=== PATIENT | female | born 1955 | race Caucasian/White ===

== ENCOUNTER 2018-07-04 10:54 | Inpatient (IN) ==
--- NOTE | 2018-07-04 11:13 | Emergency Department Note ---
Disposition Clinical Impression: Suicidal ideation Depression Qualifiers: Depression Type: unspecified Qualified Code(s): F32.9 - Major depressive disorder, single episode, unspecified Disposition: Admitted As Inpatient Condition: Good Time of Disposition: 14:56 General Adult HPI - General Chief complaint: ED Psychiatric Symptoms Stated complaint: SI Time Seen by Provider: 07/04/18 11:02 Source: patient, EMS Mode of arrival: EMS Limitations: no limitations Nursing Notes Reviewed: Yes Vital Signs Reviewed: Yes - History of Present Illness HPI Narrative: Patient is a 62-year-old female that presents emergency department for suicidal ideation. Patient states this is been ongoing for months but has gotten worse over the past 2 days. Patient states that she can no longer take anymore and is having increased thoughts of harming herself. Patient states that if she was to attempt suicide she would overdose on her pills at home. Patient also states that she does have a gun in the home which usually the examination and the gun are and she does not know where the ammunition is but however recently due to due to someone breaking in the gun has been loaded. Patient states that she has had previous suicide attempt when she was in high school. Patient states that she has not taken any additional medications or drugs at this time. Patient states that she is having thoughts of harming someone else but will not disclose who she is having thoughts of harming. Patient denies any auditory or visual hallucinations. Patient states that she has been taking all her medications as appropriate however states that she has not anything for depression at this time. Pain Scale: 0 - Related Data Home Medications Medication Instructions Recorded Confirmed Levothyroxine [Synthroid] 100 mcg PO DAILY 11/30/15 07/04/18 Simvastatin [Zocor] 40 mg PO HS 11/30/15 07/04/18 Gabapentin [Neurontin] 300 mg PO TID 05/20/18 07/04/18 clonazePAM [Clonazepam] 1 mg PO BID 07/04/18 07/04/18 Allergies Allergy/AdvReac Type Severity Reaction Status Date / Time Sulfa (Sulfonamide Allergy Rash Verified 11/30/15 17:55 Antibiotics) All systems ED: reviewed and negative except as stated. Cardiovascular: Denies: chest pain Respiratory: Denies: dyspnea Psychiatric: Reports: anxiety, depression, suicidal thoughts, homicidal thoughts. Denies: auditory hallucinations, visual hallucinations Past Medical History - Past Medical History Medical history: Reports: hyperlipidemia, hypertension, thyroid disease Psychiatric history: Reports: anxiety, bipolar, depression, prior suicide attempt, previous psychiatric hospitalization MEDICAL LEGAL INVESTIGATOR history: Reports: no MEDICAL LEGAL INVESTIGATOR history - Social History Smoking Status: Never smoker Smokeless Tobacco Status: No Alcohol use: Reports: none Drug use: Reports: none Physical Exam - General Limitations: no limitations General appearance: alert, in no apparent distress - Head Head exam: atraumatic, normocephalic - Eye Eye exam: Present: normal appearance, EOMI - Neck Neck exam: Present: normal inspection, full ROM, trachea midline - Respiratory Respiratory exam: Present: normal lung sounds bilaterally. Absent: respiratory distress, wheezes - Cardiovascular Cardiovascular exam: Present: regular rate, normal rhythm, normal heart sounds, +S1, +S2 - Abdominal Exam Abdominal exam: Present: soft, Non-Tender, normal bowel sounds - Neurological Exam Neurological exam: Present: alert, oriented X3 - Psychiatric Psychiatric exam: Present: depressed, flat affect - Skin Skin exam: Present: warm, dry, intact Course Vital Signs Temperature 98.8 F 07/04/18 11:01 Pulse Rate 82 07/04/18 11:01 Respiratory Rate 18 07/04/18 11:01 Blood Pressure 180/106 07/04/18 11:01 O2 Sat by Pulse Oximetry 99 07/04/18 11:01 Temperature 98.8 F 07/04/18 11:01 Pulse Rate 82 07/04/18 11:01 Respiratory Rate 18 07/04/18 11:01 Blood Pressure 180/106 07/04/18 11:01 O2 Sat by Pulse Oximetry 99 07/04/18 11:01 Oxygen Delivery Oxygen Delivery Room Air Medical Decision Making - [facility] Narrative Medical decision making narrative: Due the patient's into the emergency department with reports of depression and suicidal ideation we will obtain basic medical clearance labs and once patient has been deemed medically cleared 1A will be contacted to evaluate the patient at bedside. Patient has a pink slip that is filled out and is at the engineering secretary's test here in the emergency department. Patient's laboratory testing is relatively unremarkable and the patient has been deemed medically cleared. 1A evaluated the patient at bedside. 1A recommended admission for this patient. We will follow the recommendations the patient will be admitted to the hospital for psychiatric reasons. Patient has been pink slipped and is at the community mental health worker's desk. Dr. Werner was the accepting physician. Patient will be admitted to the psychiatric team for further evaluation of management - Medical Records Medical records reviewed: Yes I reviewed the patient's medical records. - Lab Data Lab results reviewed: Yes I reviewed the patient's lab results. Result diagrams: 07/04/18 11:21 07/04/18 12:19 Lab Results 07/04/18 07/04/18 07/04/18 Range/Units 11:21 11:21 11:21 WBC 6.8 (4.3-11.1) K/mcL RBC 4.72 (3.82-4.97) M/mcL Hgb 15.2 (11.5-15.4) g/dL Hct 46.1 H (35.3-44.9) % MCV 97.7 (83.0-100.0) fL MCH 32.2 (28.0-33.3) pg MCHC 33.0 (31.6-35.5) g/dL RDW 12.9 (11.5-14.5) % Plt Count 229 (140-400) K/mcL MPV 10.4 (9.4-12.4) fL Immature Gran % 0.4 (0-4) % Seg Neutrophils % 53.5 % Lymphocytes % 32.7 % Monocytes % 10.2 % Eosinophils % 1.9 % Basophils % 1.3 % Neutrophils # 3.6 (1.6-8.9) K/mcL Lymphocytes # 2.2 (0.6-4.6) K/mcL Monocytes # 0.7 (0.0-1.3) K/mcL Eosinophils # 0.1 (0.0-0.6) K/mcL Basophils # 0.1 (0.0-0.2) K/mcL Sodium Cancelled Potassium Cancelled Chloride Cancelled Carbon Dioxide Cancelled BUN Cancelled Creatinine Cancelled Est GFR ( Amer) Cancelled Est GFR (Non-Af Amer) Cancelled BUN/Creatinine Ratio Cancelled Glucose Cancelled Calculated Osmolality Cancelled Calcium Cancelled Urine Color (Yellow) Urine Clarity (Clear) Urine pH (5.0-8.0) pH Units Ur Specific [place] (1.010-1.025) Urine Protein (Neg-Trace) mg/dL Urine Glucose (UA) (Normal) mg/dL Urine Ketones (Negative) mg/dL Urine Blood (Negative) Urine Nitrite (Negative) Urine Bilirubin (Negative) Urine Urobilinogen (Normal) mg/dL Ur Leukocyte Esterase (Negative) Urine Microscopic RBC (0-3) per hpf Urine Microscopic WBC (0-3) per hpf Ur Squamous Epith Cells (None-Few) per lpf Urine Bacteria (None-Few) per hpf Hyaline Casts (None-Few) per lpf Salicylates < 2.5 L (15.0-30.0) mg/dL Urine Opiates Screen (Eyaylk=584) ng/mL Acetaminophen < 10 L (10-20) mcg/mL Ur Barbiturates Screen (Yyeism=322) ng/mL Ur Phencyclidine Scrn (Cutoff=25) ng/mL Ur Amphetamines Screen (Atucke=9511) ng/mL U Benzodiazepines Scrn (Kjiixk=718) ng/mL Urine Cocaine Screen (Cutoff= 300) ng/mL U Marijuana (THC) Screen (Cutoff = 50) ng/mL Ur Drug Screen Interp Ethyl Alcohol < 10 (Less than 10) mg/dL Specimen Rejected Hemolyzed 07/04/18 07/04/18 07/04/18 Range/Units 11:50 11:50 12:19 WBC (4.3-11.1) K/mcL RBC (3.82-4.97) M/mcL Hgb (11.5-15.4) g/dL Hct (35.3-44.9) % MCV (83.0-100.0) fL MCH (28.0-33.3) pg MCHC (31.6-35.5) g/dL RDW (11.5-14.5) % Plt Count (140-400) K/mcL MPV (9.4-12.4) fL Immature Gran % (0-4) % Seg Neutrophils % % Lymphocytes % % Monocytes % % Eosinophils % % Basophils % % Neutrophils # (1.6-8.9) K/mcL Lymphocytes # (0.6-4.6) K/mcL Monocytes # (0.0-1.3) K/mcL Eosinophils # (0.0-0.6) K/mcL Basophils # (0.0-0.2) K/mcL Sodium 143 Potassium 4.3 Chloride 109 H Carbon Dioxide 28 BUN 8 Creatinine 0.82 Est GFR ( Amer) > 60 Est GFR (Non-Af Amer) > 60 BUN/Creatinine Ratio 10 Glucose 99 Calculated Osmolality 294 Calcium 9.8 Urine Color Yellow (Yellow) Urine Clarity Clear (Clear) Urine pH 6.5 (5.0-8.0) pH Units Ur Specific [place] 1.006 L (1.010-1.025) Urine Protein Negative (Neg-Trace) mg/dL Urine Glucose (UA) Normal (Normal) mg/dL Urine Ketones Negative (Negative) mg/dL Urine Blood Negative (Negative) Urine Nitrite Negative (Negative) Urine Bilirubin Negative (Negative) Urine Urobilinogen Normal (Normal) mg/dL Ur Leukocyte Esterase Moderate H (Negative) Urine Microscopic RBC 0-3 (0-3) per hpf Urine Microscopic WBC 3-5 H (0-3) per hpf Ur Squamous Epith Cells Many H (None-Few) per lpf Urine Bacteria None Seen (None-Few) per hpf Hyaline Casts None Seen (None-Few) per lpf Salicylates (15.0-30.0) mg/dL Urine Opiates Screen Negative (Ziwkkb=382) ng/mL Acetaminophen (10-20) mcg/mL Ur Barbiturates Screen Negative (Vrrrlg=287) ng/mL Ur Phencyclidine Scrn Negative (Cutoff=25) ng/mL Ur Amphetamines Screen Negative (Eklykb=9331) ng/mL U Benzodiazepines Scrn Negative (Xltqoo=420) ng/mL Urine Cocaine Screen Negative (Cutoff= 300) ng/mL U Marijuana (THC) Screen Negative (Cutoff = 50) ng/mL Ur Drug Screen Interp See Below Ethyl Alcohol (Less than 10) mg/dL Specimen Rejected - Radiology Data Radiology results reviewed: Yes I reviewed the patient's radiology results. Attestation Statement - Attestation Attestation: I, Preston Sales, examined this patient and my medical decision-making was reviewed with the DEPUTY COMMISSIONER/PA/Advanced Practice Nurse/Resident Physician. I agree with the documented findings, disposition and treatment plan as described except to the extent set forth below. 62-year-old female presents emergency Department with concerns of suicidal ideation. Patient has a history of suicidal ideation and was admitted in the past at a hospital in [place]. Patient states she has had increasing stress at home and has had daily thoughts about either being or ending her life. Her psychiatrist, Dr. morris, recommended she be evaluated emergency department likely admitted for adjustment of her medications. Patient does state that she had a plan that she was going to overdose on her medications at home. There is a shotgun in the house. Patient was medically cleared and evaluated by behavioral health. They recommended she be admitted to the hospital for further care and evaluation of her suicidal ideation.
[2018-07-04 11:59] LABS: Basophils # 0.1 K/mcL (0.0-0.2); Basophils % 1.3 %; Eosinophils # 0.1 K/mcL (0.0-0.6); Eosinophils % 1.9 %; Hematocrit 46.1 % (35.3-44.9); Hemoglobin 15.2 g/dL (11.5-15.4); Immature Granulocytes % 0.4 % (0-4); Lymphocytes # 2.2 K/mcL (0.6-4.6); Lymphocytes % 32.7 %; Mean Corpuscular Hemoglobin 32.2 pg (28.0-33.3); Mean Corpuscular Volume 97.7 fL (83.0-100.0); Mean Platelet Volume 10.4 fL (9.4-12.4); Monocytes # 0.7 K/mcL (0.0-1.3); Monocytes % 10.2 %; Neutrophils # 3.6 K/mcL (1.6-8.9); Platelet Count 229 K/mcL (140-400); Red Blood Count 4.72 M/mcL (3.82-4.97); Red Cell Distribution Width 12.9 % (11.5-14.5); Segmented Neutrophils % 53.5 %
[2018-07-04 12:01] LABS: Bilirubin,Urine Negative (Negative); Blood,Urine Negative (Negative); Clarity,Urine Clear (Clear); Color,Urine Yellow (Yellow); Glucose,Urine (UA) Normal (Normal); Ketones,Urine Negative (Negative); Leukocyte Esterase,Urine Moderate (Negative); Nitrite,Urine Negative (Negative); PH,Urine 6.5 pH Units (5.0-8.0); Protein,Urine Negative (Neg-Trace); Specific Gravity,Urine 1.006 (1.010-1.025); Urobilinogen,Urine Normal (Normal)
[2018-07-04 12:01] LABS: Acetaminophen < 10 mcg/mL (10-20); Ethanol < 10 mg/dL (Less than 10); Salicylate < 2.5 mg/dL (15.0-30.0)
[2018-07-04 12:02] LABS: Bacteria,Urine None Seen per hpf (None-Few); Hyaline Casts,Urine None Seen per lpf (None-Few); RBC,Urine 0-3 per hpf (0-3); Squamous Epithelial Cell,Urine Many per lpf (None-Few)
[2018-07-04 12:24] LABS: Amphetamine Screen,Urine Negative ng/mL (Cutoff=1000); Barbiturate Screen,Urine Negative ng/mL (Cutoff=200); Benzodiazepines Screen,Urine Negative ng/mL (Cutoff=200); Cannabinoid Screen,Urine Negative ng/mL (Cutoff = 50); Cocaine Screen,Urine Negative ng/mL (Cutoff= 300); Opiate Screen,Urine Negative ng/mL (Cutoff=300); Phencyclidine Screen,Urine Negative ng/mL (Cutoff=25)
[2018-07-04 12:52] LABS: BUN/Creatinine Ratio 10 (6-26); Blood Urea Nitrogen 8 mg/dL (8-23); Calcium 9.8 mg/dL (8.6-10.3); Carbon Dioxide 28 mEq/L (23-29); Chloride 109 mEq/L (98-107); Glucose 99 mg/dL (70-105); Osmolality,Calculated 294 (280-300); Potassium 4.3 mEq/L (3.5-5.1); Sodium 143 mEq/L (136-145); eGFR For Non-African Americans > 60 (> 60)
[2018-07-04] MEDS ORDERED: *HR* LORazepam 1 MG TABLET PO ONE (14:05)
[2018-07-04] MEDS ORDERED: Haloperidol Lactate 5 MG/ML VIAL IM PRN (15:18)
[2018-07-04] MEDS ORDERED: MOM Conc 10 ML UD.LIQ PO PRN (15:18)
[2018-07-04] MEDS ORDERED: *HR* LORazepam 2 MG/ML VIAL IM PRN (15:18)
[2018-07-04] MEDS ORDERED: Mag Hydrox/Al Hydrox/Simeth 30 ML UDC PO PRN (15:18)
[2018-07-04] MEDS ORDERED: *HR* LORazepam 1 MG TABLET PO PRN (15:18)
[2018-07-04] MEDS: Ibuprofen 400 MG TABLET PO PRN (20:29)
[2018-07-04] MEDS: hydrOXYzine pamoate 25 MG CAPSULE PO PRN (20:30)
[2018-07-04] MEDS: traZODone 50 MG TABLET PO PRN (20:30)
[2018-07-04] MEDS: clonazePAM 1 MG TABLET PO SCH (23:42)
[2018-07-04] MEDS: Gabapentin 300 MG CAPSULE PO SCH (23:42)
[2018-07-05] MEDS: Gabapentin 300 MG CAPSULE PO SCH ×3 (09:05→20:40)
[2018-07-05] MEDS: clonazePAM 1 MG TABLET PO SCH ×2 (09:05→20:40)
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
[2018-07-05] MEDS: traZODone 50 MG TABLET PO PRN (20:40)
[2018-07-05] MEDS: Ibuprofen 400 MG TABLET PO PRN (20:40)
[2018-07-06] MEDS: Gabapentin 300 MG CAPSULE PO SCH ×3 (10:10→21:32)
[2018-07-06] MEDS: clonazePAM 1 MG TABLET PO SCH ×2 (10:10→21:32)
[2018-07-06] MEDS: FLUoxetine 20 MG CAPSULE PO SCH (10:10)
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
[2018-07-06] MEDS: hydrOXYzine pamoate 25 MG CAPSULE PO PRN (21:32)
[2018-07-06] MEDS: Ibuprofen 400 MG TABLET PO PRN (21:32)
[2018-07-06] MEDS: traZODone 50 MG TABLET PO PRN (21:33)
[2018-07-07] MEDS: Gabapentin 300 MG CAPSULE PO SCH ×2 (09:53→16:14)
[2018-07-07] MEDS: clonazePAM 1 MG TABLET PO SCH (09:54)
[2018-07-07] MEDS: FLUoxetine 20 MG CAPSULE PO SCH (09:54)
[2018-07-07 10:29] VITALS: BP 146/87
--- NOTE | 2018-07-07 16:51 | Discharge Summary ---
Date of Encounter: 07/07/18 Time of Encounter: 16:45 Diagnosis - Discharge Diagnosis (1) Bipolar 1 disorder, depressed Status: Acute Medications - Discharge Medications Prescriptions: FLUoxetine HCl [Prozac] 20 mg PO DAILY 30 Days #30 capsule Levothyroxine [Synthroid] 100 mcg PO DAILY 11/30/15 [History] Simvastatin [Zocor] 40 mg PO HS 11/30/15 [History] Gabapentin [Neurontin] 300 mg PO TID 05/20/18 [History] clonazePAM [Clonazepam] 1 mg PO BID 07/04/18 [History] Benztropine [Cogentin] 1 mg PO HS tablet 07/07/18 [Rx] FLUoxetine HCl [Prozac] 20 mg PO DAILY 30 Days #30 capsule 07/07/18 [Rx] Allergy/AdvReac Type Severity Reaction Status Date / Time Sulfa (Sulfonamide Allergy Rash Verified 11/30/15 17:55 Antibiotics) Results Procedures and tests throughout hospitalization: Completed Lab Orders Category Date Time Status Acetaminophen Stat Lab 07/04/18 11:21 Completed Basic Metabolic Panel Stat Lab 07/04/18 12:19 Completed Complete Blood Count [HEME] Stat Lab 07/04/18 11:21 Completed Drug Screen, Urine [UCHEM] Stat Lab 07/04/18 11:50 Completed Ethanol Stat Lab 07/04/18 11:21 Completed Salicylate Stat Lab 07/04/18 11:21 Completed Thyroid Stimulating Hormone Stat Lab 07/04/18 12:19 Completed Urinalysis reflex Microscopic [URIN] Stat Lab 07/04/18 11:50 Completed Provider Date of admission: 07/04/18 14:59 Primary care physician: PCP NONE Psychiatry Exam - Constitutional Vitals: Temp Pulse Resp BP Pulse Ox 98.7 F 89 22 146/87 96 07/07/18 09:00 07/07/18 09:00 07/07/18 09:00 07/07/18 09:00 07/07/18 09:00 Hospital Course Hospital course: Ms. Watson is a 62 year old female Does patient wish to continue nicotine replacement upon disc: No (non smoker) - Time Spent with Patient Total time spent providing and/or coordinating discharge services: 20 min Less than 30 minutes Assessment and Plan - Patient/Caregiver Discharge Instructions Activity: resume usual activities as tolerated Diet: regular diet - Follow up Plan Follow up with: [facility] [Outside] - 07/19/18 9:15 am (Appointment with Dr. Hitchcock at [facility] on July 19 at 9:15 am.) Functional capacity at discharge: independent ambulation Overall status at discharge: Stable Disposition: Home, Self-Care Quality - Multiple Antipsychotics Patient discharged on 2 or more antipsychotic medications: No Procedures - Procedures Procedures: Medication Management, Crisis Stabilization, Supportive Therapy, Group Therapy, Psychoeducational Therapy
== END 2018-07-07 17:50 | disposition home or self-care (01) | DRG 885 ==
LOC: EMEROOARM 10:54 → SUATTDRO 14:59 → 1ANU 14:59
PROVIDERS: ADMIT General Practice; ATTEND Psychiatry & Neurology Psychiatry

== ENCOUNTER 2019-05-04 09:33 | Inpatient (IN) ==
[2019-05-04] MEDS ORDERED: 0.9 % Sodium Chloride 1,000 ML IVC ONE (09:42)
[2019-05-04 10:30] LABS: Bilirubin,Urine Small (Negative); Blood,Urine Large (Negative); Clarity,Urine Cloudy (Clear); Color,Urine Dark Yellow (Yellow); Glucose,Urine (UA) Normal (Normal); Ketones,Urine Negative (Negative); Leukocyte Esterase,Urine Small (Negative); Nitrite,Urine Negative (Negative); PH,Urine 5.5 pH Units (5.0-8.0); Protein,Urine Trace mg/dL (Neg-Trace); Specific Gravity,Urine 1.029 (1.010-1.025); Urobilinogen,Urine Normal (Normal)
[2019-05-04 10:30] LABS: Basophils # 0.1 K/mcL (0.0-0.2); Basophils % 0.6 %; Eosinophils # 0.3 K/mcL (0.0-0.6); Eosinophils % 3.4 %; Hematocrit 42.2 % (35.3-44.9); Hemoglobin 14.3 g/dL (11.5-15.4); Lymphocytes # 1.6 K/mcL (0.6-4.6); Lymphocytes % 16.3 %; Mean Corpuscular HGB Conc 33.9 g/dL (31.6-35.5); Mean Corpuscular Hemoglobin 33.1 pg (28.0-33.3); Mean Corpuscular Volume 97.7 fL (83.0-100.0); Monocytes # 0.8 K/mcL (0.0-1.3); Monocytes % 8.4 %; Neutrophils # 6.9 K/mcL (1.6-8.9); Platelet Count 234 K/mcL (140-400); Red Blood Count 4.32 M/mcL (3.82-4.97); Red Cell Distribution Width 13.2 % (11.5-14.5); Segmented Neutrophils % 70.3 %; White Blood Count 9.8 K/mcL (4.3-11.1)
[2019-05-04 10:31] LABS: Bacteria,Urine None Seen per hpf (None-Few); RBC,Urine 0-3 per hpf (0-3); Squamous Epithelial Cell,Urine Many per lpf (None-Few)
[2019-05-04 10:34] LABS: INR 1.1; Prothrombin Time 12.8 Seconds (9.4-12.1)
[2019-05-04 10:37] LABS: Activated Partial Thrombo Time 32.2 Seconds (26.0-36.0)
[2019-05-04 10:41] LABS: Mucus,Urine Many (Few)
[2019-05-04 10:43] LABS: Renal Epithelial Cells,Urine Few per hpf (None-Few); Transitional Epi Cells,Urine Few per hpf (None-Few)
[2019-05-04 10:55] LABS: Amphetamine Screen,Urine Negative ng/mL (Cutoff=1000); Barbiturate Screen,Urine Negative ng/mL (Cutoff=200); Benzodiazepines Screen,Urine Positive ng/mL (Cutoff=200); Cannabinoid Screen,Urine Negative ng/mL (Cutoff = 50); Cocaine Screen,Urine Negative ng/mL (Cutoff= 300); Opiate Screen,Urine Negative ng/mL (Cutoff=300); Phencyclidine Screen,Urine Negative ng/mL (Cutoff=25)
[2019-05-04 11:38] LABS: Alanine Aminotransferase 20 Units/L (7-52); Albumin 3.7 g/dL (3.5-5.7); Albumin/Globulin Ratio 1.3 (1.1-2.2); Alkaline Phosphatase 73 Units/L (34-104); Aspartate Amino Transferase 22 Units/L (13-39); BUN/Creatinine Ratio 12 (6-26); Bilirubin,Total 0.9 mg/dL (0.3-1.0); Blood Urea Nitrogen 10 mg/dL (8-23); Calcium 8.8 mg/dL (8.6-10.3); Carbon Dioxide 24 mEq/L (23-29); Chloride 105 mEq/L (98-107); Ethanol < 10 mg/dL (Less than 10); Globulin 2.9 g/dL (2.4-3.5); Glucose 109 mg/dL (70-105); Osmolality,Calculated 290 (280-300); Potassium 3.6 mEq/L (3.5-5.1); Sodium 140 mEq/L (136-145); Thyroid Stimulating Hormone 2.173 mcIU/mL (0.340-5.600); Total Protein 6.6 g/dL (6.4-8.9); Troponin I < 0.03 ng/mL (< 0.04); eGFR For African Americans > 60 (> 60); eGFR For Non-African Americans > 60 (> 60)
[2019-05-04 12:39] LABS: Bilirubin,Direct 0.2 mg/dL (0.0-0.2)
[2019-05-04 12:40] LABS: Bilirubin,Indirect 0.7 mg/dL (0.0-1.0)
[2019-05-04] MEDS ORDERED: Naloxone 0.4 MG/ML INJ IVP PRN (13:43)
[2019-05-04] MEDS ORDERED: Ondansetron 4 MG/2 ML VIAL IVP PRN (13:43)
[2019-05-04 14:40] LABS: Magnesium 2.1 mg/dL (1.6-2.6)
[2019-05-04] MEDS: FLUoxetine 20 MG CAPSULE PO SCH ×2 (18:11→20:51)
[2019-05-04] MEDS: *HR* Heparin 5,000 UNIT/ML VIAL SQ SCH (20:51)
[2019-05-04] MEDS ORDERED: Perflutren Lipid Microsphere 1.3 ML in 0.9 % Sodium Chloride 8.7 ML IVP ONE (21:53)
[2019-05-04] MEDS ORDERED: Perflutren Lipid Microsphere 2 ML VIAL ONE (21:57)
[2019-05-05] MEDS: *HR* Heparin 5,000 UNIT/ML VIAL SQ SCH ×3 (05:56→21:38)
[2019-05-05 06:25] LABS: Hematocrit 43.3 % (35.3-44.9); Hemoglobin 14.6 g/dL (11.5-15.4); Mean Corpuscular HGB Conc 33.7 g/dL (31.6-35.5); Mean Corpuscular Hemoglobin 32.3 pg (28.0-33.3); Mean Corpuscular Volume 95.8 fL (83.0-100.0); Mean Platelet Volume 9.9 fL (9.4-12.4); Platelet Count 241 K/mcL (140-400); Red Blood Count 4.52 M/mcL (3.82-4.97); White Blood Count 7.2 K/mcL (4.3-11.1)
[2019-05-05 06:45] LABS: Alanine Aminotransferase 21 Units/L (7-52); Albumin 3.6 g/dL (3.5-5.7); Albumin/Globulin Ratio 1.2 (1.1-2.2); Alkaline Phosphatase 70 Units/L (34-104); Aspartate Amino Transferase 24 Units/L (13-39); BUN/Creatinine Ratio 11 (6-26); Bilirubin,Total 1.1 mg/dL (0.3-1.0); Blood Urea Nitrogen 9 mg/dL (8-23); Carbon Dioxide 26 mEq/L (23-29); Chloride 106 mEq/L (98-107); Glucose 100 mg/dL (70-105); Osmolality,Calculated 293 (280-300); Potassium 3.6 mEq/L (3.5-5.1); Sodium 142 mEq/L (136-145); Total Protein 6.6 g/dL (6.4-8.9); eGFR For African Americans > 60 (> 60); eGFR For Non-African Americans > 60 (> 60)
[2019-05-05] MEDS: FLUoxetine 20 MG CAPSULE PO SCH ×3 (09:23→21:39)
[2019-05-05] MEDS: Aspirin 81 MG TAB.CHEW PO SCH (09:24)
[2019-05-05] MEDS ORDERED: clonazePAM 1 MG TABLET PO PRN (10:40)
[2019-05-05] MEDS: Gabapentin 300 MG CAPSULE PO SCH ×2 (14:57→21:39)
[2019-05-05] MEDS: Deutetrabenazine [Austedo] 12 MG PO SCH (14:57)
[2019-05-05] MEDS ORDERED: Deutetrabenazine [Austedo] 12 MG PO SCH (21:00)
[2019-05-05] MEDS: clonazePAM 1 MG TABLET PO SCH (21:39)
[2019-05-06] MEDS: *HR* Heparin 5,000 UNIT/ML VIAL SQ SCH ×3 (05:26→21:05)
[2019-05-06 07:42] LABS: Hematocrit 45.8 % (35.3-44.9); Hemoglobin 15.3 g/dL (11.5-15.4); Mean Corpuscular HGB Conc 33.4 g/dL (31.6-35.5); Mean Corpuscular Hemoglobin 32.1 pg (28.0-33.3); Mean Corpuscular Volume 96.2 fL (83.0-100.0); Mean Platelet Volume 10.1 fL (9.4-12.4); Platelet Count 242 K/mcL (140-400); Red Blood Count 4.76 M/mcL (3.82-4.97); Red Cell Distribution Width 13.2 % (11.5-14.5); White Blood Count 7.7 K/mcL (4.3-11.1)
[2019-05-06 07:59] LABS: BUN/Creatinine Ratio 11 (6-26); Blood Urea Nitrogen 10 mg/dL (8-23); Calcium 9.2 mg/dL (8.6-10.3); Carbon Dioxide 26 mEq/L (23-29); Chloride 107 mEq/L (98-107); Glucose 99 mg/dL (70-105); Osmolality,Calculated 293 (280-300); Potassium 3.7 mEq/L (3.5-5.1); Sodium 142 mEq/L (136-145); eGFR For African Americans > 60 (> 60); eGFR For Non-African Americans > 60 (> 60)
[2019-05-06] MEDS: AUSTEDO 12 MG PO SCH ×2 (11:03→21:04)
[2019-05-06] MEDS: Multivit/Ca/Min/Fe/FA 1 TAB TABLET PO SCH (11:08)
[2019-05-06] MEDS: clonazePAM 1 MG TABLET PO SCH ×2 (11:08→21:04)
[2019-05-06] MEDS: Gabapentin 300 MG CAPSULE PO SCH ×3 (11:08→21:04)
[2019-05-06] MEDS: FLUoxetine 20 MG CAPSULE PO SCH ×3 (11:08→21:04)
[2019-05-06] MEDS: Aspirin 81 MG TAB.CHEW PO SCH (11:08)
[2019-05-06] MEDS: Deutetrabenazine [Austedo] 12 MG PO SCH (11:09)
[2019-05-07] MEDS: *HR* Heparin 5,000 UNIT/ML VIAL SQ SCH ×3 (05:32→21:41)
[2019-05-07] MEDS: Deutetrabenazine [Austedo] 12 MG PO SCH (09:20)
[2019-05-07] MEDS: Gabapentin 300 MG CAPSULE PO SCH ×3 (09:20→21:41)
[2019-05-07] MEDS: FLUoxetine 20 MG CAPSULE PO SCH ×3 (09:20→21:41)
[2019-05-07] MEDS: Aspirin 81 MG TAB.CHEW PO SCH (09:20)
[2019-05-07] MEDS: clonazePAM 1 MG TABLET PO SCH ×2 (09:20→21:41)
[2019-05-07] MEDS: Multivit/Ca/Min/Fe/FA 1 TAB TABLET PO SCH (09:20)
[2019-05-07] MEDS: AUSTEDO 12 MG PO SCH (21:43)
[2019-05-07 23:33] LABS: Bilirubin,Urine Negative (Negative); Blood,Urine Negative (Negative); Clarity,Urine Clear (Clear); Color,Urine Yellow (Yellow); Glucose,Urine (UA) Normal (Normal); Ketones,Urine Negative (Negative); Leukocyte Esterase,Urine Negative (Negative); Nitrite,Urine Negative (Negative); PH,Urine 5.5 pH Units (5.0-8.0); Protein,Urine Negative (Neg-Trace); Specific Gravity,Urine 1.024 (1.010-1.025); Urobilinogen,Urine Normal (Normal)
[2019-05-08] MEDS: *HR* Heparin 5,000 UNIT/ML VIAL SQ SCH ×3 (05:40→21:22)
[2019-05-08] MEDS: Aspirin 81 MG TAB.CHEW PO SCH (09:50)
[2019-05-08] MEDS: clonazePAM 1 MG TABLET PO SCH ×2 (09:50→21:22)
[2019-05-08] MEDS: Multivit/Ca/Min/Fe/FA 1 TAB TABLET PO SCH (09:50)
[2019-05-08] MEDS: FLUoxetine 20 MG CAPSULE PO SCH ×3 (09:50→21:22)
[2019-05-08] MEDS: Gabapentin 300 MG CAPSULE PO SCH ×3 (09:51→21:22)
[2019-05-08] MEDS: Deutetrabenazine [Austedo] 12 MG PO SCH (09:52)
[2019-05-08] MEDS: AUSTEDO 12 MG PO SCH (21:27)
[2019-05-09] MEDS: *HR* Heparin 5,000 UNIT/ML VIAL SQ SCH ×3 (06:17→20:02)
[2019-05-09] MEDS: FLUoxetine 20 MG CAPSULE PO SCH ×3 (10:18→20:01)
[2019-05-09] MEDS: Gabapentin 300 MG CAPSULE PO SCH ×3 (10:18→20:01)
[2019-05-09] MEDS: Aspirin 81 MG TAB.CHEW PO SCH (10:18)
[2019-05-09] MEDS: Multivit/Ca/Min/Fe/FA 1 TAB TABLET PO SCH (10:18)
[2019-05-09] MEDS: clonazePAM 1 MG TABLET PO SCH ×2 (10:18→20:01)
[2019-05-09] MEDS: Deutetrabenazine [Austedo] 12 MG PO SCH (10:19)
[2019-05-09 15:10] LABS: Bilirubin,Urine Small (Negative); Blood,Urine Large (Negative); Clarity,Urine Cloudy (Clear); Color,Urine Dark Yellow (Yellow); Glucose,Urine (UA) Normal (Normal); Ketones,Urine Negative (Negative); Leukocyte Esterase,Urine Negative (Negative); Nitrite,Urine Positive (Negative); PH,Urine 5.5 pH Units (5.0-8.0); Protein,Urine Negative (Neg-Trace); Specific Gravity,Urine > 1.030 (1.010-1.025); Urobilinogen,Urine Normal (Normal)
[2019-05-09 15:11] LABS: Bacteria,Urine Many per hpf (None-Few); Hyaline Casts,Urine None Seen per lpf (None-Few); Squamous Epithelial Cell,Urine None Seen per lpf (None-Few); WBC,Urine 0-3 per hpf (0-3)
[2019-05-09 15:23] LABS: RBC,Urine Present per hpf (0-3)
[2019-05-09] MEDS: cephALEXin 500 MG CAPSULE PO SCH ×3 (15:35→20:02)
[2019-05-09] MEDS: AUSTEDO 12 MG PO SCH (20:02)
[2019-05-10] MEDS: *HR* Heparin 5,000 UNIT/ML VIAL SQ SCH ×3 (06:37→21:29)
[2019-05-10] MEDS: clonazePAM 1 MG TABLET PO SCH ×2 (09:49→21:29)
[2019-05-10] MEDS: Gabapentin 300 MG CAPSULE PO SCH ×3 (09:50→21:29)
[2019-05-10] MEDS: Multivit/Ca/Min/Fe/FA 1 TAB TABLET PO SCH (09:50)
[2019-05-10] MEDS: Aspirin 81 MG TAB.CHEW PO SCH (09:50)
[2019-05-10] MEDS: Deutetrabenazine [Austedo] 12 MG PO SCH (09:50)
[2019-05-10] MEDS: FLUoxetine 20 MG CAPSULE PO SCH ×3 (09:50→21:29)
[2019-05-10] MEDS: cephALEXin 500 MG CAPSULE PO SCH ×3 (09:50→21:29)
[2019-05-10] MEDS: AUSTEDO 12 MG PO SCH (21:30)
[2019-05-11] MEDS: *HR* Heparin 5,000 UNIT/ML VIAL SQ SCH ×3 (06:09→21:47)
[2019-05-11] MEDS: clonazePAM 1 MG TABLET PO SCH ×2 (09:38→21:47)
[2019-05-11] MEDS: cephALEXin 500 MG CAPSULE PO SCH ×3 (09:39→21:48)
[2019-05-11] MEDS: Gabapentin 300 MG CAPSULE PO SCH ×3 (09:39→21:48)
[2019-05-11] MEDS: FLUoxetine 20 MG CAPSULE PO SCH ×3 (09:39→21:48)
[2019-05-11] MEDS: Aspirin 81 MG TAB.CHEW PO SCH (09:40)
[2019-05-11] MEDS: Multivit/Ca/Min/Fe/FA 1 TAB TABLET PO SCH (09:40)
[2019-05-11] MEDS: Deutetrabenazine [Austedo] 12 MG PO SCH (09:41)
[2019-05-11] MEDS: Artificial Tears SOLN 15 ML BOTTLE BOTH EYES SCH ×3 (12:31→21:48)
[2019-05-11] MEDS: Sennosides/Docusate Sodium TABLET PO SCH (12:32)
[2019-05-11] MEDS: AUSTEDO 12 MG PO SCH (21:47)
[2019-05-12] MEDS: *HR* Heparin 5,000 UNIT/ML VIAL SQ SCH ×2 (06:43→14:26)
[2019-05-12] MEDS: Multivit/Ca/Min/Fe/FA 1 TAB TABLET PO SCH (09:10)
[2019-05-12] MEDS: clonazePAM 1 MG TABLET PO SCH (09:10)
[2019-05-12] MEDS: Sennosides/Docusate Sodium TABLET PO SCH (09:10)
[2019-05-12] MEDS: FLUoxetine 20 MG CAPSULE PO SCH ×2 (09:10→14:27)
[2019-05-12] MEDS: Artificial Tears SOLN 15 ML BOTTLE BOTH EYES SCH ×3 (09:10→16:12)
[2019-05-12] MEDS: Gabapentin 300 MG CAPSULE PO SCH ×2 (09:11→14:27)
[2019-05-12] MEDS: Aspirin 81 MG TAB.CHEW PO SCH (09:11)
[2019-05-12] MEDS: Deutetrabenazine [Austedo] 12 MG PO SCH (09:11)
[2019-05-12] MEDS: cephALEXin 500 MG CAPSULE PO SCH ×2 (09:11→14:27)
[2019-05-12] MEDS ORDERED: Milk and Molasses Enema 200 ML RC ONE (10:05)
[2019-05-12 20:34] VITALS: BP 131/66
== END 2019-05-12 21:06 | DRG 556 ==
LOC: 3ANU 09:33 → EMEROOARM 09:33 → SUATTDRO 13:36 → 3ANU 15:34
PROVIDERS: ADMIT Student in an Organized Health Care Education/Training Program; ATTEND Internal Medicine